=== PATIENT | female | born 1985 | race Caucasian/White ===

== ENCOUNTER 2018-01-29 20:07 | Emergency (ER) | payer SELFPAY ==
[2018-01-29 20:22] VITALS: BP 110/77; PULSE 93; RESP 20; TEMP 99.2; O2SAT 98
--- NOTE | 2018-01-29 22:00 | C.PDOC ---
History Of Present Illness 32 year old female presents to the ED requesting a test. As per triage , patient took an at-home test today which was positive. Patient presents to the ED requesting a confirmation. She denies abdominal pain, vaginal discharge/bleeding and has no other complaints at this time. Time Seen by Provider: 01/29/18 20:26 Chief Complaint (Nursing): Medical Clearance History Per: Patient History/Exam Limitations: no limitations Onset/Duration Of Symptoms: Hrs Current Symptoms Are (Timing): Still Present Additional History Per: Patient Past Medical History Reviewed: Historical Data, Nursing Documentation, Vital Signs Vital Signs: Last Vital Signs Temp 99.2 F 01/29/18 20:17 Pulse 93 H 01/29/18 20:17 Resp 20 01/29/18 20:17 BP 110/77 01/29/18 20:17 Pulse Ox 98 01/29/18 22:12 - Medical History PMH: No Chronic Diseases Surgical History: No Surg Hx Family History: States: Unknown Family Hx - Social History Hx Alcohol Use: Yes Hx Substance Use: No Review Of Systems Gastrointestinal: Negative for: Abdominal Pain Genitourinary: Negative for: Vaginal Discharge, Vaginal Bleeding Physical Exam - Physical Exam Appears: Non-toxic, No Acute Distress Skin: Normal Color, Warm, Dry Head: Atraumatic, Normacephalic Eye(s): bilateral: Normal Inspection Neck: Normal ROM Extremity: Normal ROM Neurological/Psych: Oriented x3 ED Course And Treatment O2 Sat by Pulse Oximetry: 98 (on RA) Pulse Ox Interpretation: Normal Medical Decision Making Medical Decision Making: Progress: Urine collected by RN. Patient left ED without receiving test results. Disposition - Disposition Disposition: ELOPEMENT - ER ONLY Disposition Time: 20:45 Condition: STABLE - POA Present On Arrival: None - Clinical Impression Clinical Impression: Positive test - PA / [employer] / Resident Statement MD/DO has reviewed & agrees with the documentation as recorded. - Scribe Statement The provider has reviewed the documentation as recorded by the Scribe (Cathy Eagle) All medical record entries made by the Scribe were at my direction and personally dictated by me. I have reviewed the chart and agree that the record accurately reflects my personal performance of the history, physical exam, medical decision making, and the department course for this patient. I have also personally directed, reviewed, and agree with the discharge instructions and disposition.
== END 2018-01-29 20:45 | disposition left against medical advice (07) ==
LOC: C.ER 20:07
DX: Z32.01 Encounter for pregnancy test, result positive (principal)